=== PATIENT | female | born 1995 | race Two or more races ===

== ENCOUNTER 2024-04-26 11:35 | Emergency (ER) | payer SELFPAY ==
[~2024-04-26] VITALS: Ht 162.6 cm; Wt 82.0 kg
[2024-04-26 11:36] VITALS: O2SAT 98
[2024-04-26 11:56] VITALS: BP 160/92; PULSE 79; RESP 18; TEMP 98.1; O2SAT 100
== END 2024-04-26 12:54 | disposition home or self-care (01) ==
LOC: ER 11:35
DX: J02.9 Acute pharyngitis, unspecified (principal)
CPT/HCPCS: 87070; 87430; 99283